=== PATIENT | male | born 1960 | race African-American/Black ===

== ENCOUNTER 2018-07-25 21:58 | Inpatient (IN) | payer SELFPAY ==
[~2018-07-25] VITALS: Ht 172.7 cm; Wt 98.0 kg
[2018-07-25] MEDS ORDERED: NITROGLYCERIN 0.4MG TABLET SL SL PRN (23:30)
[2018-07-25] MEDS ORDERED: HYDRALAZINE 20MG/ML VIAL IV ONE (23:30)
[2018-07-26 00:04] LABS: BASOPHILS % 0.9 % (0.0-2.0); EOSINOPHILS % 2.9 % (0.0-5.0); HEMATOCRIT. 44.2 % (42.0-52.0); HEMOGLOBIN. 14.8 g/dL (14.0-18.0); LYMPHOCYTES % 43.1 % (20.0-50.0); MEAN CORPUSCULAR HEMOGLOBIN 28.5 pg (28.0-32.0); MEAN CORPUSCULAR VOLUME 85.4 fL (80.0-94.0); MEAN PLATELET VOLUME 7.5 fl (7.4-10.4); MONOCYTES % 11.9 % (2.0-8.0); NEUTROPHILS % 41.2 % (40.0-76.0); PLATELET 274 x1000/uL (130-400); RED BLOOD CELL COUNT 5.18 mill/uL (4.7-6.1)
[2018-07-26 00:07] LABS: CHLORIDE 108 mEq/L (98-107)
[2018-07-26 00:16] LABS: D-DIMER 0.3 mg/L FEU (<0.50); PARTIAL THROMBOPLASTIN TIME 27.8 sec (23.4-31.0); PROTHROMBIN TIME 10.4 sec (9.6-11.0)
[2018-07-26] MEDS ORDERED: IOHEXOL-350 100 ML BOTTLE ONE (03:58)
[2018-07-26] MEDS ORDERED: ENOXAPARIN 40MG/0.4ML SYR SUBCUT SCH (10:15)
[2018-07-26] MEDS ORDERED: IPRATROPIUM/ALBUTEROL 0.5-3(2.5)MG/3ML NEB INH PRN (10:15)
[2018-07-26] MEDS ORDERED: KETOROLAC 15MG/ML VIAL IV PRN (10:15)
[2018-07-26] MEDS ORDERED: LORAZEPAM 0.5MG TABLET PO PRN (10:15)
[2018-07-26] MEDS ORDERED: ONDANSETRON HCL 4MG/2ML INJ IV PRN (10:15)
[2018-07-26] MEDS ORDERED: GUAIFENESIN 200MG/10ML SUGAR FREE UDC PO PRN (10:15)
[2018-07-26] MEDS ORDERED: ZOLPIDEM TARTRATE 5MG TABLET PO PRN (10:15)
[2018-07-26] MEDS ORDERED: MAGNESIUM/ALUMINUM HYDROXIDE/SIMETHICONE 30ML UDC PO PRN (10:15)
[2018-07-26] MEDS ORDERED: CLONIDINE 0.1MG TABLET PO PRN (10:15)
[2018-07-26] MEDS ORDERED: DOCUSATE SODIUM 100MG CAPSULE PO PRN (10:15)
[2018-07-26] MEDS ORDERED: ACETAMINOPHEN 325MG TABLET PO PRN (10:15)
[2018-07-26] MEDS ORDERED: NITROGLYCERIN 0.4MG TABLET SL SL PRN (11:45)
[2018-07-26 16:00] VITALS: BP 143/90
[2018-07-26 16:18] VITALS: BP 116/88
[2018-07-26] MEDS ORDERED: AMLO5TAB88 MT (16:54)
[2018-07-26] MEDS ORDERED: LOSA50TA20 MT (16:54)
[2018-07-26 20:00] VITALS: BP 123/84
[2018-07-26] MEDS: LISINOPRIL 20MG TABLET PO SCH (21:00)
[2018-07-26] MEDS: FAMOTIDINE 20MG TABLET PO SCH (22:02)
[2018-07-26] MEDS: ENOXAPARIN 40MG/0.4ML SYR SUBCUT SCH (22:02)
[2018-07-26] MEDS: METOPROLOL TARTRATE 25MG TABLET PO SCH (22:02)
[2018-07-26 22:25] LABS: LDL CHOLESTEROL 122 mg/dL (5-100)
[2018-07-26 22:26] LABS: CREATINE KINASE 281 IU/L (39-308); HDL CHOLESTEROL 40 mg/dL (40-59)
[2018-07-26 22:28] LABS: CREATINE KINASE MB FRACTION < 1.0 ng/mL (0.5-3.6)
[2018-07-27] VITALS (7 sets, daily range): BP systolic 130–164; BP diastolic 70–101
[2018-07-27 07:54] LABS: CREATINE KINASE 251 IU/L (39-308)
[2018-07-27 07:57] LABS: CREATINE KINASE MB FRACTION < 1.0 ng/mL (0.5-3.6)
[2018-07-27] MEDS: ENOXAPARIN 40MG/0.4ML SYR SUBCUT SCH (08:45)
[2018-07-27] MEDS: METOPROLOL TARTRATE 25MG TABLET PO SCH (08:46)
[2018-07-27] MEDS: FAMOTIDINE 20MG TABLET PO SCH (08:46)
[2018-07-27] MEDS: LISINOPRIL 20MG TABLET PO SCH (08:50)
[2018-07-27] MEDS ORDERED: ASPIRIN 325MG EC TABLET PO SCH (09:00)
== END 2018-07-27 11:02 | disposition home or self-care (01) | DRG 203 ==
LOC: ER 21:58 → 8WST 07-26 04:11 → ENRESERV 07-26 12:48
PROVIDERS: ADMIT Internal Medicine; ATTEND Internal Medicine
DX: R07.89 Other chest pain (principal); F17.210 Nicotine dependence, cigarettes, uncomplicated; I10 Essential (primary) hypertension; R47.81 Slurred speech; Z79.899 Other long term (current) drug therapy
CPT/HCPCS: 36415; 71045; 71275; 74174; 80061; 82550; 82553; 83036; 83880; 84484; 85379; 93005; 93970; 96374; 99285; J0360; J1650; Q9967